=== PATIENT | male | born 1960 | race Caucasian/White ===

== ENCOUNTER 2018-08-19 07:11 | Inpatient (IN) | payer BC ==
[~2018-08-19 07:11] MED LIST: DESFLURANE 15 MIN; EPHEDrine SULFATE 50 MG/5 ML SYG; PROPOFOL 200 MG INJ; SUCCINYLCHOLINE CHLORIDE 100 MG/5 ML SYG IV
[2018-08-19] MEDS ORDERED: ROCURONIUM 50 MG INJ ×2 (08:23→10:09)
[2018-08-19] MEDS ORDERED: MIDAZOLAM 1 MG/ML 2 ML INJ (08:23)
[2018-08-19] MEDS ORDERED: LIDOCAINE 1% (MDV) 20 ML INJ (08:24)
[2018-08-19] MEDS: LACTATED RINGER'S 1,000 ML IV* (08:30)
[2018-08-19] MEDS ORDERED: GELATIN SIZE 100 SPONGE (08:48)
[2018-08-19] MEDS ORDERED: THROMBIN 5000 UNIT VIAL (08:48)
[2018-08-19] MEDS ORDERED: PROCHLORPERAZINE 10 MG INJ IV (09:00)
[2018-08-19] MEDS ORDERED: HYDROmorphONE 1 MG/5 ML IV SYRINGE IV (09:00)
[2018-08-19] MEDS ORDERED: ONDANSETRON 4 MG INJ IV ×2 (09:00→14:30)
[2018-08-19] MEDS: CEFAZOLIN 2 GM/50 ML (PMX) 50 ML IVPB (09:13)
[2018-08-19] MEDS ORDERED: DEXAMETHASONE 4 MG/ML 5 ML INJ (09:30)
[2018-08-19] MEDS ORDERED: ONDANSETRON 4 MG INJ (09:30)
[2018-08-19] MEDS ORDERED: hydrALAzine 20 MG INJ (10:12)
[2018-08-19] MEDS ORDERED: LABETALOL HCL 20MG INJ (10:16)
[2018-08-19] MEDS: BUPIVACAINE 0.25% (MPF) 30 ML INJ (10:47)
[2018-08-19] MEDS: POLYMYXIN/BACITRACIN 1L IRRIG (10:47)
[2018-08-19] MEDS ORDERED: FENTAnyl 50 MCG/ML VIAL ×2 (11:57→12:42)
[2018-08-19] MEDS ORDERED: PHENYLephrine (100 MCG/ML) 5ML SYG (12:29)
[2018-08-19] MEDS ORDERED: GLYCOPYRROLATE 0.4 MG INJ (13:34)
[2018-08-19] MEDS ORDERED: NEOSTIGMINE 3 MG/3 ML SYRINGE (13:34)
[2018-08-19] MEDS: hydrALAzine 20 MG INJ IV (14:07)
[2018-08-19] MEDS ORDERED: AL HYDROX/MG HYDROX/SIMETH 30 ML CUP PO (14:30)
[2018-08-19] MEDS ORDERED: TRIMETHOBENZAMIDE 100 MG/ML VIAL IM (14:30)
[2018-08-19] MEDS ORDERED: DIAZEPAM 5 MG/ML SYG IM (14:30)
[2018-08-19] MEDS ORDERED: ZOLPIDEM 5 MG TAB PO (14:30)
[2018-08-19] MEDS ORDERED: NACL 0.9% 3 ML SYG IV (14:30)
[2018-08-19] MEDS ORDERED: DIPHENHYDRAMINE 50 MG CAP PO (14:30)
[2018-08-19] MEDS ORDERED: BETHANECHOL 25 MG TAB PO (14:30)
[2018-08-19] MEDS ORDERED: ACETAMINOPHEN 325 MG TAB PO (14:30)
[2018-08-19] MEDS ORDERED: PROCHLORPERAZINE 10 MG TAB PO (14:30)
[2018-08-19] MEDS ORDERED: HYDROCODONE/APAP (5/325) TAB PO (14:30)
[2018-08-19] MEDS ORDERED: DIAZEPAM 5 MG TAB PO (14:30)
[2018-08-19] MEDS ORDERED: NALOXONE (0.4 MG/ML) INJ IV (14:30)
[2018-08-19] MEDS: HYDROmorphONE 1 MG/5 ML IV SYRINGE IV ×2 (14:35→14:58)
[2018-08-19] MEDS: HYDROmorphONE 0.2 MG/ML PCA IV (15:25)
[2018-08-19] MEDS: LOSARTAN 25 MG TAB PO (17:48)
[2018-08-19] MEDS: CEFAZOLIN 1 GM/50 ML (PMX) 50 ML IVPB ×2 (17:51→23:56)
[2018-08-19] MEDS: DEXTROSE 5%-0.45% NACL 1,000 ML IV ×2 (17:51→23:57)
[2018-08-19] MEDS: RANITIDINE 150 MG TAB PO (20:42)
[2018-08-20] MEDS: CEFAZOLIN 1 GM/50 ML (PMX) 50 ML IVPB ×2 (05:05→12:30)
[2018-08-20] MEDS: DEXTROSE 5%-0.45% NACL 1,000 ML IV (05:05)
[2018-08-20 05:44] LABS: HEMATOCRIT 37.8 % (42.0-52.0); HEMOGLOBIN 12.8 g/dl (14.0-18.0)
[2018-08-20 06:21] LABS: ANION GAP 13 (5-13); BLOOD UREA NITROGEN 16 mg/dl (7-20); CALCIUM 8.9 mg/dl (8.4-10.2); CARBON DIOXIDE 27 mmol/L (21-31); CHLORIDE 99 mmol/L (97-110); CREATININE 0.98 mg/dl (0.61-1.24); Estimated GFR > 60 mL/min (>60); GLUCOSE 164 mg/dl (70-220); POTASSIUM 4.6 mmol/L (3.5-5.1); SODIUM 139 mmol/L (135-144)
[2018-08-20] MEDS: DOCUSATE SODIUM 100 MG CAP PO (09:14)
[2018-08-20] MEDS: ASCORBIC ACID 500 MG TAB PO (09:14)
[2018-08-20] MEDS: RANITIDINE 150 MG TAB PO (09:14)
[2018-08-20] MEDS: FERROUS SULFATE (EC) 325 MG TAB PO ×2 (09:14→12:29)
[2018-08-20] MEDS: BETHANECHOL 25 MG TAB PO (09:15)
[2018-08-20] MEDS: LOSARTAN 50 MG TAB PO (09:16)
[2018-08-20] MEDS: CEPASTAT LOZENGE MT (09:37)
[2018-08-20 11:48] LABS: ADD UMIC YES; UR ASCORBIC ACID NEGATIVE (NEGATIVE); UR BILIRUBIN (Dip) NEGATIVE (NEGATIVE); UR BLOOD (Dip) 1+ mg/dL (NEGATIVE); UR CLARITY CLEAR (CLEAR); UR COLOR COLORLESS (YELLOW); UR GLUCOSE (Dip) NEGATIVE (NEGATIVE); UR KETONES (Dip) NEGATIVE (NEGATIVE); UR LEUKOCYTE ESTERASE (Dip) NEGATIVE Leu/ul (NEGATIVE); UR NITRITE (Dip) NEGATIVE (NEGATIVE); UR RBC 0 /HPF (0-5); UR SPECIFIC GRAVITY (Dip) 1.002 (1.003-1.030); UR TOTAL PROTEIN (Dip) NEGATIVE (NEGATIVE); UR UROBILINOGEN (Dip) NEGATIVE (NEGATIVE); UR WBC 0 /HPF (0-5)
[2018-08-20] MEDS: HYDROCODONE/APAP (5/325) TAB PO (12:29)
== END 2018-08-20 16:45 | disposition home or self-care (01) | DRG 473 ==
LOC: REC 07:11 → MS1 15:06
PROC: 0RG20A0 Fusion of 2 or more Cervical Vertebral Joints with Interbody Fusion Device, Anterior Approach, Anterior Column, Open Approach (ICD-10-PCS; principal; 2018-08-19 09:18)
PROC: 0QB30ZZ Excision of Left Pelvic Bone, Open Approach (ICD-10-PCS; 2018-08-19 09:18)
PROC: 0RB30ZZ Excision of Cervical Vertebral Disc, Open Approach (ICD-10-PCS; 2018-08-19 09:18)
PROC: 4A11X4G Monitoring of Peripheral Nervous Electrical Activity, Intraoperative, External Approach (ICD-10-PCS; 2018-08-19 09:18)
DX: M50.021 Cervical disc disorder at C4-C5 level with myelopathy (principal); M48.02 Spinal stenosis, cervical region; I10 Essential (primary) hypertension
CPT/HCPCS: 72020; 72040; 80048; 81001; 85014; 85018; 86850; 86900; 86901; 86920; 87086; 88304; 90686; 97116; 97161; 97530